=== PATIENT | male | born 1955 | race Caucasian/White ===

== ENCOUNTER 2016-12-13 12:27 | Emergency (ER) | payer MEDICARE, OTHER ==
[2016-12-13 12:35] VITALS: BMI 23.7
[2016-12-13 12:40] VITALS: RESP 18; TEMP 97.7; O2SAT 99
--- NOTE | 2016-12-13 15:08 | C.PDOC ---
History Of Present Illness 61 year old male presents to the ED with complaints of mild tenderness and ecchymosis to left tibia for two weeks. Patient states he strained a muscle while running on the stair climber. He was seen by a mds coordinator who was concerned about potential DVT. Patient denies numbness, weakness, or other complaints at this time. Time Seen by Provider: 12/13/16 13:06 Chief Complaint (Nursing): Lower Extremity Problem/Injury History Per: Patient History/Exam Limitations: no limitations Onset/Duration Of Symptoms: Days (2 weeks ) Current Symptoms Are (Timing): Still Present Recent travel outside of the [place]: No Additional History Per: Prior Records (sent from mds coordinator ) Past Medical History Reviewed: Historical Data, Nursing Documentation, Vital Signs Vital Signs: Last Vital Signs Temp 97.7 F 12/13/16 12:36 Pulse 61 12/13/16 15:49 Resp 18 12/13/16 15:49 BP 131/81 12/13/16 15:49 Pulse Ox 99 12/13/16 15:49 - Medical History PMH: Anxiety, Depression, Gastritis, HTN, Hypercholesterolemia, Migraine - [facility] Procedures OTH NONOPER CARD AND VASC MEASURE (08/18/13) Family History: States: Unknown Family Hx - Social History Hx Tobacco Use: No Hx Alcohol Use: No Hx Substance Use: No - Immunization History Hx Tetanus Toxoid Vaccination: No Hx Influenza Vaccination: No Hx Pneumococcal Vaccination: No Review Of Systems Constitutional: Negative for: Fever, Chills Cardiovascular: Negative for: Chest Pain, Palpitations Respiratory: Negative for: Cough, Shortness of Breath Gastrointestinal: Negative for: Nausea, Vomiting Musculoskeletal: Positive for: Leg Pain (left lower leg ) Neurological: Negative for: Weakness, Numbness Physical Exam - Physical Exam Appears: Non-toxic, No Acute Distress Skin: Warm, Dry Head: Atraumatic, Normacephalic Eye(s): bilateral: Normal Inspection, PERRL, EOMI Oral Mucosa: Moist Neck: Supple Chest: Symmetrical, No Deformity Cardiovascular: Rhythm Regular, No Murmur Respiratory: Normal Breath Sounds, No Rales, No Rhonchi, No Wheezing Gastrointestinal/Abdominal: Soft, No Tenderness, No Distention, No Guarding, No Rebound Extremity: Normal ROM, Tenderness (tenderness to 3 cm area of ecchymosis to mid- medial left tibia ), No Pedal Edema (no distal edema ), No Calf Tenderness, Capillary Refill (good capillary refill, less than two seconds ), No Swelling, Other (3 cm area of ecchymosis to mid-medial left tibia ) Pulses: Left Dorsalis Pedis: Normal, Right Dorsalis Pedis: Normal Neurological/Psych: Oriented x3 Gait: Steady ED Course And Treatment O2 Sat by Pulse Oximetry: 99 (RA) - Other Rad L leg venous doppler X-Ray: Read By Radiologist (no dvt) Progress Note: Labs and doppler were ordered. Patient was given Xanax and Motrin. Medical Decision Making Medical Decision Making: small localized hematoma, resolving @ L medial calf area c/w small muscle strain /contusion no DVT If concerned for arterial insufficiency consider outpatient BOB's Disposition Doctor Will See Patient In The: Office Counseled Patient/Family Regarding: Studies Performed, Diagnosis - Disposition Referrals: Rai Tobin DPM [Doctor Pod[facility]] - Disposition: HOME/ ROUTINE Disposition Time: 15:07 Condition: GOOD Additional Instructions: Estudios NEGATIVE por coagulos de las venas del pierna (NEG for DVT) Si se interesa, considera BOB's lloyd outpatient. Sigue ibuprofeno y bolsa de hielo lloyd necessario. Forms: [facility] (North Korean) Print Language: FRENCH - Clinical Impression Clinical Impression: Anxiety, Leg hematoma - Scribe Statement The provider has reviewed the documentation as recorded by the Scribe All medical record entries made by the Scribe were at my direction and personally dictated by me. I have reviewed the chart and agree that the record accurately reflects my personal performance of the history, physical exam, medical decision making, and the department course for this patient. I have also personally directed, reviewed, and agree with the discharge instructions and disposition.Bree Lucero
[2016-12-13 15:50] VITALS: BP 131/81; PULSE 61
== END 2016-12-13 15:50 | disposition home or self-care (01) ==
LOC: C.ER 12:27
DX: S80.12XA Contusion of left lower leg, initial encounter (principal); X58.XXXA Exposure to other specified factors, initial encounter; Y93.02 Activity, running; F41.9 Anxiety disorder, unspecified

== ENCOUNTER 2017-01-07 15:06 | Emergency (ER) | payer MEDICARE ==
[2017-01-07 15:07] VITALS: BMI 23.7
--- NOTE | 2017-01-07 16:35 | C.PDOC ---
History Of Present Illness 61 yr old male with PMHx of panic attacks and high blood pressure, presents to the ER stating today while driving he felt a sensation in the back of his neck, associated with tingling sensation to his fingers, SOB and palpitations. Patient states the symptoms feel similar to a anxiety attack. Patient denies usage of any medication. Patient denies vision changes, chest pain, nausea, vomiting, headache, weakness or numbness. Time Seen by Provider: 01/07/17 15:49 Chief Complaint (Nursing): Anxiety History Per: Patient History/Exam Limitations: no limitations Onset/Duration Of Symptoms: Sudden Onset Past Medical History Reviewed: Historical Data, Nursing Documentation, Vital Signs Vital Signs: Last Vital Signs Temp 97.9 F 01/07/17 15:34 Pulse 86 01/07/17 15:34 Resp 18 01/07/17 15:34 BP 121/81 01/07/17 15:34 Pulse Ox 97 01/07/17 18:09 - Medical History PMH: Anxiety, Depression, Gastritis, HTN, Hypercholesterolemia, Migraine - [facility] Procedures OTH NONOPER CARD AND VASC MEASURE (08/18/13) Family History: States: No Known Family Hx - Social History Hx Tobacco Use: No Hx Alcohol Use: No Hx Substance Use: No - Immunization History Hx Tetanus Toxoid Vaccination: No Hx Influenza Vaccination: No Hx Pneumococcal Vaccination: No Review Of Systems Except As Marked, All Systems Reviewed And Found Negative. Constitutional: Positive for: Other ((+) Tingling sensations to fingers) Eyes: Negative for: Vision Change Cardiovascular: Positive for: Palpitations. Negative for: Chest Pain Respiratory: Positive for: Shortness of Breath Gastrointestinal: Negative for: Nausea, Vomiting Musculoskeletal: Positive for: Neck Pain Neurological: Negative for: Weakness, Numbness Physical Exam - Physical Exam Appears: Non-toxic, No Acute Distress Skin: Warm, Dry, No Rash Head: Atraumatic, Normacephalic Oral Mucosa: Moist Neck: Paracervical Tenderness, Supple Chest: Symmetrical, No Tenderness Cardiovascular: Rhythm Regular, No Murmur Respiratory: Normal Breath Sounds, No Rales, No Rhonchi, No Wheezing Extremity: Normal ROM, No Swelling Neurological/Psych: Oriented x3, Normal Speech, Normal Motor, Normal Sensation Gait: Steady ED Course And Treatment - Laboratory Results Result Diagrams: 01/07/17 16:56 01/07/17 16:56 ECG: Interpreted By Me, Viewed By Me ECG Rhythm: Sinus Rhythm Interpretation Of ECG: Incomple RBBB. No ST/T wave abnormalities. Rate From EC (BPM) O2 Sat by Pulse Oximetry: 97 (RA) Pulse Ox Interpretation: Normal - Radiology CXR: Interpreted by Me, Viewed By Me CXR Interpretation: Yes: No Acute Disease - Other Rad X-Ray - Cervical Spine X-Ray: Interpreted by Me, Viewed By Me Interpretation: No fractures. No dislocations. Medical Decision Making Medical Decision Making: DDx: Palpitations, Hx of panic attacks, paracervical neck pain PLAN: * X-Ray - Cervical Spine * CXR * EKG * Troponin * CBC * CMP * Toradol IVP Disposition Counseled Patient/Family Regarding: Diagnosis, Need For Followup - Disposition Disposition: HOME/ ROUTINE Disposition Time: 18:39 Condition: STABLE Additional Instructions: follow up with your doctor in 2 days call to make an appointment take advil or aleve for neck pain return to hospital if symptoms worsens or progress Instructions: Musculoskeletal Pain (ED), Panic Attack (ED) Forms: [employer] ([place] Islander) Print Language: MALAWIAN - Clinical Impression Clinical Impression: Panic attack, Neck pain - Scribe Statement The provider has reviewed the documentation as recorded by the Aliaibvincent Jones Provider Attestation: All medical record entries made by the Aliaibvincent were at my direction and personally dictated by me. I have reviewed the chart and agree that the record accurately reflects my personal performance of the history, physical exam, medical decision making, and the department course for this patient. I have also personally directed, reviewed, and agree with the discharge instructions and disposition.
[2017-01-07 17:00] LABS: BASO % 0.5 % (0.0-2.0); EOS # 0.1 K/uL (0.0-0.7); EOS % 1.1 % (0.0-4.0); HEMATOCRIT 42.7 % (35.0-51.0); LYMPH # 1.3 K/uL (1.0-4.3); LYMPH % 21.7 % (20.0-40.0); MEAN CORPUSCULAR HEMOGLOBIN 30.6 pg (27.0-31.0); MEAN PLATELET VOLUME 8.3 fL (7.2-11.7); MONO # 0.4 K/uL (0.0-0.8); MONO % 6.8 % (0.0-10.0); RED CELL DISTRIBUTION WIDTH 12.8 % (11.5-14.5)
[2017-01-07 17:10] LABS: CHLORIDE 102 mmol/L (98-107)
[2017-01-07 17:11] LABS: POTASSIUM 4.3 mmol/L (3.6-5.2); SODIUM 134 mmol/L (132-148)
[2017-01-07 17:13] LABS: ALB/GLOB RATIO 1.8 (1.0-2.1); ALKALINE PHOSPHATASE 94 U/L (38-126); AST/SGOT 21 U/L (17-59); BILIRUBIN,TOTAL 0.4 mg/dL (0.2-1.3); BLOOD UREA NITROGEN 21 mg/dL (9-20); CARBON DIOXIDE 21 mmol/L (22-30); GFR AFRICAN-AMERICAN > 60; TOTAL PROTEIN 6.7 g/dL (6.3-8.3)
[2017-01-07 17:14] LABS: ALT/SGPT 30 U/L (21-72); CALCIUM 8.8 mg/dl (8.6-10.4); GLUCOSE,RANDOM 95 mg/dL (75-110)
[2017-01-07 18:47] VITALS: BP 122/78; PULSE 68; RESP 17; TEMP 97.8; O2SAT 99
--- NOTE | 2017-01-08 09:06 | RAD ---
PROCEDURE: CHEST RADIOGRAPH, 1 VIEW HISTORY: chest pain COMPARISON: Portable chest 07/28/2013. FINDINGS: LUNGS: No interval infiltrate bilaterally. Inspiratory volume is improved. However, there is a questionable nodule at the right base for which follow-up nipple marked chest radiography or chest CT is recommended. PLEURA: No pneumothorax or pleural fluid seen. CARDIOVASCULAR: Normal. OSSEOUS STRUCTURES: No significant abnormalities. VISUALIZED UPPER ABDOMEN: Normal. OTHER FINDINGS: None. IMPRESSION: No acute infiltrate or pleural effusion bilaterally. Improved inspiratory volume noted. Small nodular density in the right base which follow-up CT or nipple marked chest radiography is advised.
--- NOTE | 2017-01-08 09:44 | RAD ---
PROCEDURE: Cervical Spine Radiographs. HISTORY: Pain. COMPARISON: None. FINDINGS: BONES: There is a hyper lordotic cervical curvature without fracture or spondylolisthesis identified. The C1-2 articulation appears intact as well as the odontoid process. Prevertebral soft tissues are unremarkable multilevel facet arthropathy appears moderate but diffuse. DISC SPACES: Normal. SOFT TISSUES: Normal. No prevertebral soft tissue swelling. OTHER FINDINGS: None. IMPRESSION: Hyper lordotic curvature with multilevel facet arthropathy. No fracture or spondylolisthesis identified. Consider follow-up CT or MRI if clinically warranted.
--- NOTE | 2017-01-08 23:46 | CARD ---
APPROVED REPORT EKG Measurement Heart [id number] OH [id number] <Conclusion> Normal sinus rhythm Incomplete right bundle branch block Borderline ECG
== END 2017-01-07 18:57 | disposition home or self-care (01) ==
LOC: C.ER 15:06
DX: F41.0 Panic disorder [episodic paroxysmal anxiety] (principal); M54.2 Cervicalgia
CPT/HCPCS: 71010; 72040; 80053; 84484; 85025; 93005; 96374; 99283; J1885

== ENCOUNTER 2017-09-05 12:41 | Emergency (ER) | payer MEDICARE, MEDICAID ==
[2017-09-05 12:42] VITALS: BMI 23.7
[2017-09-05 12:46] VITALS: BP 128/84; PULSE 61; O2SAT 98
[2017-09-05 12:49] VITALS: RESP 16; TEMP 98
--- NOTE | 2017-09-05 12:50 | C.PDOC ---
History Of Present Illness 62 y/o male presents to the ED stating he had a panic attack while waiting at bus stop today. States he normally has medication at home, but didn't have it with him today. As per RN, patient had stated that he ran out of his Xanax at home, and could not get an appointment with his PMD until the 25h. On arrival to the ED, patient appears calm and cooperative. Currently he denies any SOB, chest pain, dizziness, weakness, pain, or other complaint. Time Seen by Provider: 09/05/17 12:46 Chief Complaint (Nursing): Med Refill History Per: Patient History/Exam Limitations: no limitations Onset/Duration Of Symptoms: Mins Current Symptoms Are (Timing): Better Past Medical History Reviewed: Historical Data, Nursing Documentation, Vital Signs Vital Signs: Last Vital Signs Temp 98 F 09/05/17 12:46 Pulse 61 09/05/17 12:46 Resp 16 09/05/17 12:46 BP 128/84 09/05/17 12:46 Pulse Ox 98 09/05/17 12:50 - Medical History PMH: Anxiety, Depression, Gastritis, HTN, Hypercholesterolemia, Migraine Denies: HIV, Chronic Kidney Disease, Sexually Transmitted Disease - [facility] Procedures OTH NONOPER CARD AND VASC MEASURE (08/18/13) Family History: States: No Known Family Hx - Social History Hx Tobacco Use: No Hx Alcohol Use: No Hx Substance Use: No - Immunization History Hx Tetanus Toxoid Vaccination: No Hx Influenza Vaccination: No Hx Pneumococcal Vaccination: No Review Of Systems Except As Marked, All Systems Reviewed And Found Negative. Cardiovascular: Negative for: Chest Pain Respiratory: Negative for: Shortness of Breath Neurological: Negative for: Weakness, Dizziness Psych: Positive for: Anxiety (now improved) Physical Exam - Physical Exam Appears: No Acute Distress, Other (Mildly anxious, but calm and cooperative) Skin: Normal Color, Warm, Dry Head: Atraumatic, Normacephalic Eye(s): bilateral: Normal Inspection, PERRL, EOMI Oral Mucosa: Moist Neck: Normal ROM, Supple Chest: Symmetrical Respiratory: No Accessory Muscle Use, Other (NARD, speaking in full sentences) Extremity: Bilateral: Atraumatic, Normal Color And Temperature, Normal ROM Pulses: Left Radial: Normal, Right Radial: Normal Neurological/Psych: Oriented x3, Normal Speech, Normal Cranial Nerves, Other ( No focal deficits) Gait: Steady ED Course And Treatment O2 Sat by Pulse Oximetry: 98 (RA) Pulse Ox Interpretation: Normal Medical Decision Making Medical Decision Making: Initial Impression: 62 y/o M requesting med refill Plan: --Xanax 0.5 mg PO Patient advised we do not refill Xanax scripts. States he will follow up with his doctor as scheduled. Patient is medically stable for discharge home. Disposition Counseled Patient/Family Regarding: Diagnosis, Need For Followup - Disposition Referrals: your,pmd [Other] Disposition: HOME/ ROUTINE Disposition Time: 12:50 Condition: IMPROVED Instructions: Anxiety, Adult (DC) Forms: [employer] (Amharic) - POA Present On Arrival: None - Clinical Impression Clinical Impression: Panic attack - Scribe Statement The provider has reviewed the documentation as recorded by the Scribe (Meghan Fisher) Provider Attestation: All medical record entries made by the Scribe were at my direction and personally dictated by me. I have reviewed the chart and agree that the record accurately reflects my personal performance of the history, physical exam, medical decision making, and the department course for this patient. I have also personally directed, reviewed, and agree with the discharge instructions and disposition.
== END 2017-09-05 13:00 | disposition home or self-care (01) ==
LOC: C.ER 12:41
DX: F41.0 Panic disorder [episodic paroxysmal anxiety] (principal)

== ENCOUNTER 2017-11-18 09:49 | Emergency (ER) | payer MEDICARE, MEDICAID ==
[2017-11-18 10:01] VITALS: BMI 23.8
[2017-11-18 10:03] VITALS: O2SAT 99
[2017-11-18] MEDS ORDERED: DiphenhydrAMINE 50 mg/ml Inj IVP STA (10:08)
[2017-11-18] MEDS ORDERED: Sodium Chloride 0.9% 1,000 ML IV ONE (10:09)
[2017-11-18 10:41] LABS: BASO % 0.6 % (0.0-2.0); EOS % 0.7 % (0.0-4.0); HEMOGLOBIN 14.2 g/dL (12.0-18.0); LYMPH % 39.5 % (20.0-40.0); MEAN CELL VOLUME 89.1 fL (80.0-94.0); MEAN CORPUSCULAR HEMOGLOBIN 30.6 pg (27.0-31.0); MEAN CORPUSCULAR HGB CONC 34.3 g/dL (33.0-37.0); MEAN PLATELET VOLUME 8.6 fL (7.2-11.7); MONO # 0.3 K/uL (0.0-0.8); MONO % 6.4 % (0.0-10.0); NEUT # 2.7 K/uL (1.8-7.0); NEUT % 52.8 % (50.0-75.0); NRBC % 0.1 % (0.0-2.0); RBC 4.66 Mil/uL (4.40-5.90); RED CELL DISTRIBUTION WIDTH 12.9 % (11.5-14.5); WHITE BLOOD COUNT 5.2 K/uL (4.8-10.8)
--- NOTE | 2017-11-18 10:44 | C.PDOC ---
History Of Present Illness 62yo male, history of headaches, comes to ER with complaints of a right sided headache, which started gradually 45 minutes prior to arrival and has been worsening. Patient reports associated nausea, vision changes and photophobia. Patient reports he has left sided face tingling but denies any numbness or weakness; patient denies any extremity weakness or numbness as well. He states at present, his vision has improved and reports he had similar headache in the past. Patient reports a mild shortness of breath which he attributes to feeling anxious. He denies any associated fever, chest pain and offers no additional medical complaints. Headache not first, worst or longest lasting. Time Seen by Provider: 11/18/17 09:58 Chief Complaint (Nursing): Weakness/Neurological Deficit History Per: Patient History/Exam Limitations: no limitations Onset/Duration Of Symptoms: Mins (45), Gradual Current Symptoms Are (Timing): Still Present Past Medical History Reviewed: Historical Data, Nursing Documentation, Vital Signs Vital Signs: Last Vital Signs Temp 99.0 F 11/18/17 13:27 Pulse 63 11/18/17 13:27 Resp 18 11/18/17 13:37 BP 108/67 11/18/17 13:27 Pulse Ox 99 11/18/17 13:27 - Medical History PMH: Anxiety, Depression, Gastritis, HTN, Hypercholesterolemia, Migraine Denies: HIV, Chronic Kidney Disease, Sexually Transmitted Disease Surgical History: No Surg Hx - [facility] Procedures OTH NONOPER CARD AND VASC MEASURE (08/18/13) Family History: States: No Known Family Hx - Social History Hx Tobacco Use: No Hx Alcohol Use: No Hx Substance Use: No - Immunization History Hx Tetanus Toxoid Vaccination: No Hx Influenza Vaccination: No Hx Pneumococcal Vaccination: No Review Of Systems Except As Marked, All Systems Reviewed And Found Negative. Constitutional: Negative for: Fever, Chills Eyes: Positive for: Vision Change, Other (photophobia) Cardiovascular: Negative for: Chest Pain Respiratory: Positive for: Shortness of Breath Gastrointestinal: Negative for: Vomiting Neurological: Positive for: Headache, Other (left sided facial tingling). Negative for: Weakness, Numbness Physical Exam - Physical Exam Appears: Non-toxic, No Acute Distress Skin: Normal Color, Warm, Dry Head: Atraumatic, Normacephalic Eye(s): bilateral: Normal Inspection, PERRL, EOMI Nose: Normal Neck: Normal, Supple Chest: Symmetrical Cardiovascular: Rhythm Regular Respiratory: Normal Breath Sounds Gastrointestinal/Abdominal: Normal Exam, Soft, No Tenderness Back: Normal Inspection Male Genital: Normal Inspection Extremity: Normal ROM, No Pedal Edema, Other (5/5 motor strength; 5/5 fish cake maker strength) Neurological/Psych: Oriented x3, Normal Speech, Normal Cognition, Normal Cranial Nerves, Normal Motor, Normal Sensation ED Course And Treatment - Laboratory Results Result Diagrams: 11/18/17 10:35 11/18/17 10:35 ECG: Interpreted By Me, Viewed By Me ECG Rhythm: Sinus Rhythm ECG Interpretation: Normal Interpretation Of ECG: Normal intervals, normal axis. No ST/T wave changes. Rate From EC O2 Sat by Pulse Oximetry: 99 (RA) Pulse Ox Interpretation: Normal Medical Decision Making Medical Decision Making: Assessment: Headache Plan: * CT Head w/o contrast * Labs * EKG * CXR * Urinalysis * IV Fluids * Benadryl 25mg IVP * Reglan 10mg IVP 1114 CT Head FINDINGS: HEMORRHAGE: No intracranial hemorrhage. BRAIN: No mass effect or edema. Minimal cerebral atrophy. No significant appearing chronic microvascular ischemic changes. Incidentally noted are punctate faint bilateral basal ganglion calcifications not believe to be clinically significant. VENTRICLES: Unremarkable. No hydrocephalus. CALVARIUM: Unremarkable. PARANASAL SINUSES: Unremarkable as visualized. No significant inflammatory changes. MASTOID AIR CELLS: Unremarkable as visualized. No inflammatory changes. OTHER FINDINGS: None. IMPRESSION: No interval pathology noted. No intracranial hemorrhage or mass effect. Mild cerebral atrophy 1200 Patient reports improvement in headache and states he feels much better. Patient informed of benign CT findings. Stable for discharge home. Disposition Counseled Patient/Family Regarding: Studies Performed, Diagnosis, Need For Followup - Disposition Referrals: Ace Yates MD [Staff Provider] - Disposition: HOME/ ROUTINE Disposition Time: 12:34 Condition: IMPROVED Additional Instructions: follow up Dr. Yates within 2 days call to make an appointment return to hospital if symptoms worsens or progress Instructions: Headache, Adult Forms: General Discharge Instructions, [facility] (Kyrgyz), Work Excuse - Clinical Impression Clinical Impression: Headache - Scribe Statement The provider has reviewed the documentation as recorded by the Scribe Jen Pandya Provider Attestation: All medical record entries made by the Scribe were at my direction and personally dictated by me. I have reviewed the chart and agree that the record accurately reflects my personal performance of the history, physical exam, medical decision making, and the department course for this patient. I have also personally directed, reviewed, and agree with the discharge instructions and disposition.
[2017-11-18 10:53] LABS: ALB/GLOB RATIO 1.5 (1.0-2.1); ALBUMIN 4.2 g/dL (3.5-5.0); ALT/SGPT 34 U/L (21-72); AST/SGOT 23 U/L (17-59); BLOOD UREA NITROGEN 18 mg/dL (9-20); CALCIUM 9.6 mg/dl (8.6-10.4); GFR NON-AFRICAN AMERICAN > 60
[2017-11-18] MEDS ORDERED: DiphenhydrAMINE 50 mg/ml Inj ONE (11:11)
[2017-11-18] MEDS ORDERED: Sodium Chloride 0.9% 1,000 ML ONE (11:12)
--- NOTE | 2017-11-18 11:22 | CT ---
Date of service: 11/18/2017 PROCEDURE: CT HEAD WITHOUT CONTRAST. HISTORY: Headache COMPARISON: 07/28/2013 TECHNIQUE: Axial computed tomography images were obtained through the head/brain without intravenous contrast. Radiation dose: Total exam DLP = 1130 mGy-cm. This CT exam was performed using one or more of the following dose reduction techniques: Automated exposure control, adjustment of the mA and/or kV according to patient size, and/or use of iterative reconstruction technique. FINDINGS: HEMORRHAGE: No intracranial hemorrhage. BRAIN: No mass effect or edema. Minimal cerebral atrophy. No significant appearing chronic microvascular ischemic changes. Incidentally noted are punctate faint bilateral basal ganglion calcifications not believe to be clinically significant. VENTRICLES: Unremarkable. No hydrocephalus. CALVARIUM: Unremarkable. PARANASAL SINUSES: Unremarkable as visualized. No significant inflammatory changes. MASTOID AIR CELLS: Unremarkable as visualized. No inflammatory changes. OTHER FINDINGS: None. IMPRESSION: No interval pathology noted. No intracranial hemorrhage or mass effect. Mild cerebral atrophy
[2017-11-18 12:04] LABS: URINE BILIRUBIN NEGATIVE (NEGATIVE); URINE BLOOD NEGATIVE (NEGATIVE); URINE CLARITY Clear (Clear); URINE COLOR Straw (YELLOW); URINE GLUCOSE (UA) NORMAL (Normal); URINE LEUKOCYTE ESTERASE NEG Leu/uL (Negative); URINE PROTEIN NEGATIVE (NEGATIVE); URINE UROBILINOGEN NORMAL mg/dL (0.2-1.0)
[2017-11-18 13:29] VITALS: BP 108/67; PULSE 63; RESP 18; TEMP 99
--- NOTE | 2017-11-19 17:43 | CARD ---
APPROVED REPORT Date of service: 11/18/2017 EKG Measurement Heart [id number] ID [id number] <Conclusion> Normal sinus rhythm Normal ECG
== END 2017-11-18 13:38 | disposition home or self-care (01) ==
LOC: C.ER 09:49
DX: R51 Headache (principal); E78.00 Pure hypercholesterolemia, unspecified; I10 Essential (primary) hypertension
CPT/HCPCS: 70450; 80053; 81001; 82948; 84484; 85025; 85651; 93005; 96374; 96375; 99285; J1200; J2765; J7030

== ENCOUNTER 2018-07-07 21:16 | Emergency (ER) | payer MEDICARE, MEDICAID ==
[2018-07-07 21:16] VITALS: BMI 23.8
[2018-07-07 21:43] VITALS: BP 135/76; PULSE 68; RESP 18; TEMP 98.2; O2SAT 100
--- NOTE | 2018-07-07 22:39 | C.PDOC ---
History Of Present Illness 63 year old male with PMHx of HTN presents to the ED for evaluation of elevated blood pressure. Patient states besides his HTN he is otherwise healthy, exercises regularly. Patient today checked his blood pressure at home and it was 217/101 which concerned him and presented to the ED for evaluation. Patient also c/o throat irritation after drinking coconut water. While in the ED patient reports throat sensation improved. Patient reports he is compliant with his blood pressure medications. Patient denies fever, chills, headache, visual changes, neck pain, CP, SOB, weakness, numbness. Time Seen by Provider: 07/07/18 22:36 Chief Complaint (Nursing): High Blood Pressure History Per: Patient History/Exam Limitations: no limitations Onset/Duration Of Symptoms: Hrs Current Symptoms Are (Timing): Still Present Quality Of Symptoms: Asymptomatic Exacerbating Factor(s): Pos: None Recent travel outside of the [place]: No Additional History Per: Patient Past Medical History Reviewed: Historical Data, Nursing Documentation, Vital Signs Vital Signs: Last Vital Signs Temp 98.2 F 07/07/18 21:39 Pulse 68 07/07/18 21:39 Resp 18 07/07/18 21:39 BP 135/76 07/07/18 21:39 Pulse Ox 100 07/07/18 21:39 Primary Care Physician: Carlos Royal, DO - Medical History PMH: Anxiety, Depression, Gastritis, HTN, Hypercholesterolemia, Migraine Denies: HIV, Chronic Kidney Disease, Sexually Transmitted Disease Surgical History: No Surg Hx - [facility] Procedures OTH NONOPER CARD AND VASC MEASURE (08/18/13) Family History: States: Unknown Family Hx - Social History Hx Tobacco Use: No Hx Alcohol Use: No Hx Substance Use: No - Immunization History Hx Tetanus Toxoid Vaccination: No Hx Influenza Vaccination: No Hx Pneumococcal Vaccination: No Review Of Systems Constitutional: Negative for: Fever, Chills Cardiovascular: Negative for: Chest Pain, Palpitations Respiratory: Negative for: Shortness of Breath Gastrointestinal: Negative for: Nausea, Vomiting, Abdominal Pain Skin: Negative for: Rash Neurological: Negative for: Weakness, Numbness, Headache, Dizziness Physical Exam - Physical Exam Appears: Well, Non-toxic, No Acute Distress Skin: Normal Color, Warm, No Rash Head: Atraumatic, Normacephalic Eye(s): bilateral: Normal Inspection (no scleral icterus), PERRL, EOMI Ear(s): Bilateral: Normal (no drainage) Oral Mucosa: Moist Throat: Normal (no swelling, injection), No Exudate, Other (airway patent) Neck: Normal ROM, Supple Chest: Symmetrical Cardiovascular: Rhythm Regular Respiratory: No Accessory Muscle Use, Other (normal inspiratory effort) Gastrointestinal/Abdominal: Soft, No Distention Back: Other (walking with upright steady gaot) Extremity: Normal ROM, No Tenderness, No Swelling Neurological/Psych: Oriented x3, Normal Speech, Normal Cognition ED Course And Treatment O2 Sat by Pulse Oximetry: 100 (On RA) Pulse Ox Interpretation: Normal Medical Decision Making Medical Decision Making: Patient was educated on how to check for blood pressure and advised to follow up with PMD. Disposition Counseled Patient/Family Regarding: Diagnosis, Need For Followup - Disposition Referrals: Carlos Royal DO [Primary Care Provider] - Disposition: HOME/ ROUTINE Disposition Time: 23:03 Condition: IMPROVED Instructions: High Blood Pressure (DC) Forms: Gen Discharge Inst Russian, [employer] (Russian) Print Language: TURKMEN - Clinical Impression Clinical Impression: Elevated blood pressure reading - PA / FURNACE ERECTOR / Resident Statement / has reviewed & agrees with the documentation as recorded. - Scribe Statement The provider has reviewed the documentation as recorded by the Scribe Dillon Blankenship All medical record entries made by the Scribe were at my direction and personally dictated by me. I have reviewed the chart and agree that the record accurately reflects my personal performance of the history, physical exam, medical decision making, and the department course for this patient. I have also personally directed, reviewed, and agree with the discharge instructions and disposition. Decision To Admit - . Patient Diagnosis: Elevated blood pressure reading
== END 2018-07-07 23:15 | disposition home or self-care (01) ==
LOC: C.ER 21:16 → SUPCPDRO 21:16 → C.ER 23:15
DX: R03.0 Elevated blood-pressure reading, without diagnosis of hypertension (principal)